=== PATIENT | female | born 1960 | race Caucasian/White ===

== ENCOUNTER 2020-07-11 13:23 | Emergency (ER) | payer OTHER, SELFPAY ==
[~2020-07-11] VITALS: Ht 152.4 cm; Wt 90.7 kg
[2020-07-11 13:27] VITALS: BP 146/97; Ht 152.4 cm; Wt 90.7 kg
== END 2020-07-11 16:51 | disposition home or self-care (01) ==
LOC: ED 13:23
DX: U07.1 COVID-19 (principal); R09.1 Pleurisy; I10 Essential (primary) hypertension; E11.9 Type 2 diabetes mellitus without complications; E78.00 Pure hypercholesterolemia, unspecified